=== PATIENT | male | born 1995 | race Caucasian/White ===

== ENCOUNTER 2021-06-23 11:15 | Emergency (ER) | payer BC, OTHER ==
[~2021-06-23] VITALS: Ht 175.3 cm; Wt 155.6 kg
[2021-06-23 11:33] VITALS: BP 120/75
== END 2021-06-23 12:27 | disposition home or self-care (01) ==
LOC: ER 11:15
DX: U07.1 COVID-19 (principal); R05.9 Cough, unspecified; Z88.8 Allergy status to other drugs, medicaments and biological substances